=== PATIENT | female | born 1990 | race African-American/Black ===

== ENCOUNTER 2022-03-30 18:25 | Emergency (ER) | payer MEDICAID ==
[~2022-03-30] VITALS: Ht 167.6 cm; Wt 85.3 kg
[2022-03-30 18:25] VITALS: BP 116/72
== END 2022-03-30 21:52 | disposition left against medical advice (07) ==
LOC: ER 18:25
DX: M54.2 Cervicalgia (principal); M54.9 Dorsalgia, unspecified; Z53.21 Procedure and treatment not carried out due to patient leaving prior to being seen by health care provider; V89.2XXA Person injured in unspecified motor-vehicle accident, traffic, initial encounter; Y93.89 Activity, other specified; Y92.89 Other specified places as the place of occurrence of the external cause; Y99.8 Other external cause status